=== PATIENT | male | born 1955 | race Caucasian/White ===

== ENCOUNTER 2019-09-02 14:25 | Outpatient (CLI) | payer MEDICARE, SELFPAY | END 2019-09-02 14:26 | disposition home or self-care (01) | LOC: SPT 14:26 | PROVIDERS: Family Provider Nurse Practitioner Primary Care; PCP Nurse Practitioner Primary Care; Visit Provider Podiatrist Foot & Ankle Surgery | DX: Z46.89 Encounter for fitting and adjustment of other specified devices (principal); L97.512 Non-pressure chronic ulcer of other part of right foot with fat layer exposed | CPT/HCPCS: L3030 ==

== ENCOUNTER 2020-06-22 13:07 | Outpatient (CLI) | payer MEDICARE, SELFPAY | END 2020-06-22 13:08 | disposition home or self-care (01) | LOC: WOUND 13:08 | PROVIDERS: Family Provider Nurse Practitioner Primary Care; PCP Nurse Practitioner Primary Care; Visit Provider Thoracic Surgery (Cardiothoracic Vascular Surgery) | DX: I96 Gangrene, not elsewhere classified (principal); L89.623 Pressure ulcer of left heel, stage 3 | CPT/HCPCS: 11042; 11045; G0463; L3260; L4397 ==

== ENCOUNTER 2020-07-20 14:09 | Outpatient (CLI) | payer MEDICARE, SELFPAY | END 2020-07-20 14:10 | disposition home or self-care (01) | LOC: WOUND 14:10 | PROVIDERS: Family Provider Nurse Practitioner Primary Care; PCP Nurse Practitioner Primary Care; Visit Provider Nurse Practitioner Family | DX: I96 Gangrene, not elsewhere classified (principal); L89.623 Pressure ulcer of left heel, stage 3 | CPT/HCPCS: 11042; L3260 ==

== ENCOUNTER 2020-07-27 13:35 | Outpatient (CLI) | payer MEDICARE, SELFPAY | END 2020-07-27 13:36 | disposition home or self-care (01) | LOC: WOUND 13:35 | PROVIDERS: Family Provider Nurse Practitioner Primary Care; PCP Nurse Practitioner Primary Care; Visit Provider Thoracic Surgery (Cardiothoracic Vascular Surgery) | DX: L89.623 Pressure ulcer of left heel, stage 3 (principal) | CPT/HCPCS: 11042 ==

== ENCOUNTER 2020-08-10 13:32 | Outpatient (CLI) | payer MEDICARE, SELFPAY | END 2020-08-10 13:33 | disposition home or self-care (01) | LOC: WOUND 13:33 | PROVIDERS: Family Provider Nurse Practitioner Primary Care; PCP Nurse Practitioner Primary Care; Visit Provider Nurse Practitioner Family | DX: L89.623 Pressure ulcer of left heel, stage 3 (principal) | CPT/HCPCS: 11042 ==

== ENCOUNTER 2020-08-24 13:46 | Outpatient (CLI) | payer MEDICARE, SELFPAY | END 2020-08-24 13:47 | disposition home or self-care (01) | LOC: WOUND 13:47 | PROVIDERS: Family Provider Nurse Practitioner Primary Care; PCP Nurse Practitioner Primary Care; Visit Provider Nurse Practitioner Family | DX: L89.623 Pressure ulcer of left heel, stage 3 (principal) | CPT/HCPCS: 11042 ==

== ENCOUNTER 2020-09-07 13:57 | Outpatient (CLI) | payer MEDICARE, SELFPAY | END 2020-09-07 13:58 | disposition home or self-care (01) | LOC: WOUND 13:58 | PROVIDERS: Family Provider Nurse Practitioner Primary Care; PCP Nurse Practitioner Primary Care; Visit Provider Nurse Practitioner Family | DX: L89.623 Pressure ulcer of left heel, stage 3 (principal) | CPT/HCPCS: 11042 ==

== ENCOUNTER 2020-09-21 13:58 | Outpatient (CLI) | payer MEDICARE, SELFPAY | END 2020-09-21 13:59 | disposition home or self-care (01) | LOC: WOUND 13:59 | PROVIDERS: Family Provider Nurse Practitioner Primary Care; PCP Nurse Practitioner Primary Care; Visit Provider Thoracic Surgery (Cardiothoracic Vascular Surgery) | DX: L89.623 Pressure ulcer of left heel, stage 3 (principal) | CPT/HCPCS: 11042 ==

== ENCOUNTER 2020-10-05 13:52 | Outpatient (CLI) | payer MEDICARE, SELFPAY | END 2020-10-05 13:53 | disposition home or self-care (01) | LOC: WOUND 13:53 | PROVIDERS: Family Provider Nurse Practitioner Primary Care; PCP Nurse Practitioner Primary Care; Visit Provider Thoracic Surgery (Cardiothoracic Vascular Surgery) | DX: L89.623 Pressure ulcer of left heel, stage 3 (principal) | CPT/HCPCS: 11042 ==

== ENCOUNTER 2020-10-13 14:50 | Outpatient (CLI) | payer MEDICARE, SELFPAY ==
--- NOTE | 2020-10-13 14:59 | US_ITS ---
WS: [id number] RENAL ULTRASOUND HISTORY: CKD STAGE 3 B COMPARISON: None available. TECHNIQUE: 2-D and color Doppler imaging of the kidney submitted. Right kidney: 10.8 cm x 7.3 cm x 4.7 cm. Normal echogenicity with no hydronephrosis or mass. Left kidney: 11.0 cm x 5.6 cm x 5.2 cm. Normal echogenicity with no hydronephrosis or mass. Aorta: Marked dilatation of the abdominal aorta. Only sagittal images of aorta are submitted and the AP diameter appears to be close to 4.9 cm. Large amount of thrombus is noted. Urinary Bladder: Normal distention. US/US renal BI* [id number] IMPRESSION: 1. Normal renal ultrasound. 2. Large abdominal aortic aneurysm with a maximum diameter 4.9 cm. Limited debbie luation during this renal ultrasound. Recommend dedicated CT angiogram of the a bdominal aorta or dedicated ultrasound of aorta. Notified Quincy Velez MD at 10/13/2020 3:37 PM. [employer] Supervisor called report a t time of examination.
== END 2020-10-13 14:51 | disposition home or self-care (01) ==
LOC: US 14:53
PROVIDERS: PCP Nurse Practitioner Primary Care; Visit Provider Internal Medicine Nephrology
DX: N18.32 Chronic kidney disease, stage 3b (principal); I71.4 Abdominal aortic aneurysm, without rupture
CPT/HCPCS: 76770

== ENCOUNTER 2020-10-14 13:23 | Outpatient (CLI) | payer MEDICARE, SELFPAY | END 2020-10-14 13:24 | disposition home or self-care (01) | LOC: WOUND 13:24 | PROVIDERS: PCP Nurse Practitioner Primary Care; Visit Provider Nurse Practitioner Family | DX: L89.623 Pressure ulcer of left heel, stage 3 (principal) | CPT/HCPCS: 11042 ==

== ENCOUNTER 2020-10-26 14:17 | Outpatient (CLI) | payer MEDICARE, SELFPAY | END 2020-10-26 14:18 | disposition home or self-care (01) | LOC: WOUND 14:18 | PROVIDERS: PCP Nurse Practitioner Primary Care; Visit Provider Thoracic Surgery (Cardiothoracic Vascular Surgery) | DX: Z09 Encounter for follow-up examination after completed treatment for conditions other than malignant neoplasm (principal) | CPT/HCPCS: 99212 ==

== ENCOUNTER 2020-11-02 13:54 | Outpatient (CLI) | payer MEDICARE, SELFPAY | END 2020-11-02 13:55 | disposition home or self-care (01) | LOC: WOUND 13:56 | PROVIDERS: PCP Nurse Practitioner Primary Care; Visit Provider Nurse Practitioner Family | DX: Z09 Encounter for follow-up examination after completed treatment for conditions other than malignant neoplasm (principal) | CPT/HCPCS: 99212 ==

== ENCOUNTER 2020-11-03 12:25 | Outpatient (CLI) | payer MEDICARE, SELFPAY ==
--- NOTE | 2020-11-03 12:45 | CT_ITS ---
WS: [id number] CT ANGIOGRAPHY ABDOMEN AORTA HISTORY: AORTIC ANEURYSM TECHNIQUE: CT angiogram is performed during IV injection. Reformation images reviewed. All CT scans a [facility] use at least one of these dose optimization techniques: automated exposure co ntrol; mA and/or kV adjustment per patient size (includes targeted exams where dose is matched to cli nical indication); or iterative reconstruction. CONTRAST: Omnipaque 350; 95 mL IV. DLP: 778.06 mGy-cm. COMPARISON: Renal ultrasound 10/13/2020 Lung bases are clear. Normal size heart. No hiatal hernia. Mild hepatomegaly and hepatic steatosis. C ontracted gallbladder. Normal size spleen and pancreas. Normal adrenal glands. No renal obstruction. No calcifications or solid masses. Abdominal aorta: Large abdominal aortic aneurysm extends over length of 12.2 cm. Aneurysm begins just below the level of the renal arteries and extends to the bifurcation. There is a large amount of anuja r circumferential thrombus. Diameter of the thrombus is 2.3 cm. The lumen is patent and is eccentrica lly positioned posteriorly. Aneurysm extends to the bifurcation. Maximum diameter of the aneurysm is 5.9 cm. Celiac axis and SMA are normal. Small amount calcium at the origins of the renal arteries. IM A is probably occluded. Proximal duodenum drapes over the aorta. Common iliac arteries are both paten t. No adenopathy or ascites. Prior appendectomy. 5 mm anterolisthesis of L4. Facet joint arthritis is moderate at L4-5 and L5-S1. CT/CT angio abdomen [id number] IMPRESSION: 1. Large juxtarenal abdominal aortic aneurysm extends over length of 12.2 cm. 2. Maximum aortic aneurysm diameter is 5.9 cm. 3. Asymmetric thrombus within the aneurysm. Diameter of the thrombosis 2.3 cm.
[2020-11-03 13:08] LABS: Blood Urea Nitrogen 13 mg/dL (8-23); Glomerular Filtration Rate 60.4 mL/min (90-130)
[2020-11-03] MEDS: iohexol 350 mg/mL 100 mL Btl IV (13:18)
== END 2020-11-03 12:26 | disposition home or self-care (01) ==
PROVIDERS: PCP Nurse Practitioner Primary Care; Visit Provider Nurse Practitioner Primary Care
DX: I71.4 Abdominal aortic aneurysm, without rupture (principal)
CPT/HCPCS: 74175; 82565; 84520; Q9967

== ENCOUNTER 2020-12-21 06:37 | Inpatient (IN) | payer MEDICARE, SELFPAY ==
[2020-12-16 09:50] VITALS: BMI 32.6
--- NOTE | 2020-12-16 10:11 | ECG_ITS ---
[facility] Test Date: 2020-12-16 Pat Name: Jeb Shook Department: Room: Gender: Male Planner/Scheduler: : 1955 Requested By: Gurwinder Wright Order Number: [id number] Lior MD: Debi Brown M.D. Measurements Intervals [place] Rate: 74 P: 32 WV: 200 QRS: 16 QRSD: 111 T: 6 QT: 370 QTc: 413 Interpretive Statements SINUS RHYTHM INFERIOR MYOCARDIAL INFARCTION [40+ ms Q WAVE AND/OR ST/T ABNORMALITY IN II/aVF], PROBABLY OLD Compared to ECG 08/30/2014 16:07:02 No significant changes Electronically Signed On 12-17-2020 14:44:21 CDT by Debi Brown M.D. [id number]
--- NOTE | 2020-12-16 10:17 | XR_ITS ---
WS: [id number] XR chest 2V* [id number] REASON FOR EXAM: pre op EVAR FINDINGS: Tortuosity and ectasia of the thoracic aorta without aneurysmal dilatation. The heart is at the upper limits of normal in size. Calcified granulomatous disease bilaterally. No active pulmonary parenchymal or pleural disease. Moderate degenerative spondylosis in the mid and lower thoracic spine. XR/XR chest 2V* [id number] IMPRESSION: No acute lung abnormality.
--- NOTE | 2020-12-16 10:17 | SUR.PREOP ---
cxr, ekg, covid done day of in person pre op on 12/16
[2020-12-16 11:00] LABS: Add Urine Microscopic? NO; Charge for UA Resulting for Rev
[2020-12-16 11:10] LABS: Basophils % 0.4 %; Eosinophils # 0.2 10^3/uL (0.0-0.8); Hematocrit 47.1 % (42.0-52.0); Lymphocytes # 2.3 10^3/uL (0.8-4.8); Lymphocytes % 31.7 %; Mean Corpuscular Hemoglobin 33.2 pg (28.0-34.0); Mean Corpuscular Volume 97.7 fL (80-94); Mean Platelet Volume 10.9 fL (7.4-10.4); Monocytes # 0.8 10^3/uL (0.2-0.9); Monocytes % 11.1 %; Neutrophils # 3.89 10^3/uL (1.8-7.7); Neutrophils % 53.4 %; Nucleated Red Blood Cells % 0 %; Platelet Count 261 10^3/cmm (130-400); Red Blood Count 4.82 10^6/uL (4.1-5.3); Red Cell Distribution Width 13.1 % (12.1-15.1); White Blood Count 7.3 10^3/uL (4.0-10.0)
[2020-12-16 11:11] LABS: Bilirubin Urine Neg (Negative); Blood Urine Neg (Negative); Glucose Urine UA Norm (Normal); Ketones Urine Negative (Negative); Leukocyte Esterase Urine Negative (Negative); Nitrate Urine Negative (Negative); Protein Urine Neg (Negative); Urine Appearance Clear (CLEAR); Urine Color Yellow (Yellow); Urobilinogen Urine Norm (Negative); pH Urine 5 (5-7)
[2020-12-16 11:17] LABS: INR 0.94 (0.8-1.2)
[2020-12-16 11:27] LABS: Anion Gap 14.5 (5-19); Blood Urea Nitrogen 13 mg/dL (8-23); Calcium 9.2 mg/dL (8.5-10.5); Carbon Dioxide 24 mmol/L (22-29); Chloride 102 mmol/L (98-107); Glomerular Filtration Rate 60.4 mL/min (90-130); Glucose 115 mg/dL (65-115); Osmolality Calculated 283 mOsm/kg (285-295); Potassium 4.5 mmol/L (3.5-5.1); Sodium 136 mmol/L (136-145)
--- NOTE | 2020-12-16 13:41 | ANES.PREANE2 ---
Pre-Anesthetic Assessment Pre-Anesthetic Assessment: Height/Weight: Height 1.83 m Weight 109.316 kg Preop Diagnosis: Abdominal aortic aneurysm Proposed Procedure: Operation Date: 12/21/20 07:00 Proposed Procedures p AAA Stent Cutdown Endovascular Aortic Repair(Not Applicable) - Gurwinder Wright MD Operation Date: 12/21/20 07:00 Proposed Procedures p Endovascular Aortic Repair(Not Applicable) - Gurwinder Wright MD Was Beta Tiffani taken within 24 hours: Yes Was Clonidine taken within 24 hours: N/A Social: Social History: Tobacco and No alcohol Exam: Pre-Anes Outpt Exam: alert, oriented x 3, clear to auscultation bilaterally and regular rate & rhythm Airway: Submandibular: WNL Cervical ROM: WNL MP: 2 Additional comments: Poor dentition Pulmonary: Pulmonary: COPD CV/HEM: CV/HEM: DVT, HTN, TX and PVD Comments: AAA : : Chronic renal Insufficiency GI: GI: GERD Metabolic: Metabolic: DM and Morbid obesity Musc/skel: Musc/skel: Lower Back Pain Anesthetic Plan: ASA status: 3 Anesthesia: General Other: A.line PFSH Anesthesia PFSH: Medical History Dilated aortic root History of deep vein thrombosis Hypertension Ischemic cardiomyopathy Myocardial infarction Tobacco abuse Surgical History History of appendectomy History of knee surgery Social History Smoking and tobacco status: current every day smoker cigarettes Packs smoked per day: 1 Years cigarettes smoked: 55 Alcohol intake: never Household members: spouse Marital status: Current occupational status: employed and retired Current occupation: [employer] Anesthesia CBC & Chem 7: 12/16/20 10:26 12/16/20 10:26 Other Labs: Laboratory Results - last 48 hr 12/16/20 12/16/20 12/16/20 10:26 10:26 10:26 WBC 7.3 RBC 4.82 Hgb 16.0 Hct 47.1 MCV 97.7 H MCH 33.2 MCHC 34.0 RDW 13.1 Plt Count 261 MPV 10.9 H Neut % (Auto) 53.4 Lymph % (Auto) 31.7 [place] % (Auto) 11.1 Eos % (Auto) 3.0 Baso % (Auto) 0.4 Neut # (Auto) 3.89 Lymph # (Auto) 2.3 [place] # (Auto) 0.8 Eos # (Auto) 0.2 Baso # (Auto) 0.0 Nucleated RBC % (auto) 0 Nucleated RBCs # 0.0 PT 12.90 INR 0.94 Sodium 136 Potassium 4.5 Chloride 102 Carbon Dioxide 24 Anion Gap 14.5 BUN 13 Creatinine 1.2 GFR Calculation 60.4 L Glucose 115 Calculated Osmolality 283 L Calcium 9.2 Urine Color Urine Appearance Urine pH Ur Specific [place] Urine Protein Urine Glucose (UA) Urine Ketones Urine Blood Urine Nitrate Urine Bilirubin Urine Urobilinogen Ur Leukocyte Esterase 12/16/20 10:26 WBC RBC Hgb Hct MCV MCH MCHC RDW Plt Count MPV Neut % (Auto) Lymph % (Auto) [place] % (Auto) Eos % (Auto) Baso % (Auto) Neut # (Auto) Lymph # (Auto) [place] # (Auto) Eos # (Auto) Baso # (Auto) Nucleated RBC % (auto) Nucleated RBCs # PT INR Sodium Potassium Chloride Carbon Dioxide Anion Gap BUN Creatinine GFR Calculation Glucose Calculated Osmolality Calcium Urine Color Yellow Urine Appearance Clear Urine pH 5 Ur Specific [place] 1.010 Urine Protein Neg Urine Glucose (UA) Norm Urine Ketones Negative Urine Blood Neg Urine Nitrate Negative Urine Bilirubin Neg Urine Urobilinogen Norm Ur Leukocyte Esterase Negative Cardiac Studies: No Data to Display
[2020-12-17 13:57] LABS: Coronavirus Test Green County Not Detected
[2020-12-21] VITALS (60 sets, daily range): BP systolic 107–135; BP diastolic 71–85; PULSE 0–88; RESP 9–19; TEMP 36.8–37.1; O2SAT 93–100; BMI 32.3
--- NOTE | 2020-12-21 06:44 | PM.HP ---
Providers/Chief Complaint Admitting Physician: Gurwinder Wright MD Primary Care Provider: Priyanka Oneil Chief Complaint: aaa History of Present Illness Jeb Shook is a 65 year old male who was cared for in our wound care service for a calcaneal wound which is now healed. Renal ultrasound was being performed for follow-up of renal insufficiency with an incidental finding of an infrarenal AAA with identified. This was followed up with a CTA which has confirmed a 4.9 cm juxtarenal abdominal aortic aneurysm. I saw him back and my heart care clinic on November 05. He has a familial history for AAA with a ruptured AAA in his grandfather. He is asymptomatic. He has a long history of tobacco use though is currently trying to quit for a second time. He has a easily palpable and nontender pulsatile abdominal mass consistent with his known AAA. He has no evidence for malperfusion distally. No claudication. No history for embolic phenomenon. His most recent BUN and creatinine were normal. Review of Systems Const: Denies: fever(s), chills, change in appetite, change in weight, fatigue or night sweats Eyes: Denies: change in vision or blurry vision ENMT: Denies: odynophagia or hoarseness Card: Reports: dyspnea on exertion; Denies: chest pain, palpitations, irregular heart rhythm, edema, syncope or leg pain with exertion Resp: Reports: dyspnea; Denies: productive cough or hemoptysis GI: Denies: abdominal pain, nausea, vomiting, dysphagia, heartburn or change in bowel habits : Denies: difficulty urinating, dysuria, urinary frequency, urinary urgency or urinary hesitancy Musc: Reports: joint pain and joint stiffness; Denies: extremity pain or extremity swelling Skin/Breast: Denies: rash Neuro: Denies: headache(s), numbness in extremities, weakness in extremities or sensory changes Psych: Denies: anxiety, depression or change in appetite Endo: Denies: polyuria, polydipsia or cold intolerance Manny/Lymph: Reports: easy bruising; Denies: easy bleeding, petechiae or enlarged lymph nodes Medications/Allergies Home Medications Medication Instructions Recorded Confirmed Last Taken Type Sole Supports #1 each 08/07/19 11/05/20 Unknown Rx cetirizine 5 mg tablet 5 mg PO DAILY 08/07/19 12/16/20 Unknown History metoprolol succinate 50 mg 50 mg PO DAILY 08/07/19 12/16/20 Unknown History tablet,extended release 24 hr sildenafil 25 mg tablet 25 mg PO DAILY PRN 08/07/19 12/16/20 Unknown History tramadol 200 mg tablet,extended 200 mg PO DAILY PRN 08/07/19 12/16/20 Unknown History release 24 hr gabapentin 100 mg capsule 100 mg PO QID cap 10/26/20 12/16/20 Unknown History omeprazole 40 mg capsule,delayed 40 mg PO DAILY PRN 10/26/20 12/16/20 Unknown History release zolpidem 12.5 mg tablet,extended 12.5 mg PO BEDTIME tab 10/26/20 12/16/20 Unknown History release,multiphase acetaminophen 650 mg 650 mg PO QID 11/05/20 12/16/20 Unknown History tablet,extended release Multivitamin 50 Plus 1 tab PO DAILY 12/16/20 12/16/20 Unknown History aspirin 325 mg PO DAILY 12/16/20 12/16/20 Unknown History Allergies Allergy/AdvReac Type Severity Reaction Status Date / Time cortisone Allergy Severe ended up Verified 12/16/20 09:41 in ICU, does not recall much Sulfa (Sulfonamide Allergy Unknown Unknown Verified 12/16/20 09:41 Antibiotics) PFSH Acute PFSH: Medical History Dilated aortic root History of deep vein thrombosis Hypertension Ischemic cardiomyopathy Myocardial infarction Tobacco abuse Surgical History History of appendectomy History of knee surgery Social History Smoking and tobacco status: current every day smoker cigarettes Packs smoked per day: 1 Years cigarettes smoked: 55 Alcohol intake: never Household members: spouse Marital status: Current occupational status: employed and retired Current occupation: [employer] Physical Exam Const: COMMON NORMALS: patient oriented x3 and alert ORIENTATION/CONSCIOUSNESS: Yes oriented to person, Yes oriented to place and Yes oriented to time HENMT: COMMON NORMALS: normocephalic HEAD & SCALP: normocephalic Neck/C-Spine: COMMON NORMALS: full ROM, supple, no JVD and No carotid bruits GENERAL: Yes trachea midline CERVICAL SPINE: Yes cervical ROM normal Chest: COMMONS NORMALS: normal inspection of the chest and normal palpation of entire chest wall Resp: COMMON NORMALS: normal respiratory effort, No use of accessory muscles, clear to auscultation bilaterally and percussion normal EFFORT & INSPECTION: Yes able to speak in complete sentences and Yes symmetric chest movement AUSCULTATION: clear to auscultation bilaterally PERCUSSION: percussion normal Cardio: COMMON NORMALS: no JVD, regular rate, regular rhythm, S1 normal heart sound present, S2 normal heart sound present, No gallops present (Cardio), No murmurs present (Cardio), No rub (Cardio) and Peripheral pulses 2+ throughout JUGULAR VENOUS DISTENTION: no JVD RATE: regular rate RHYTHM: regular rhythm HEART SOUNDS: S1 normal heart sound present and S2 normal heart sound present PERIPHERAL PULSES: radial pulses present positive bilateral 2+, femoral pulses present positive bilateral 2+, posterior tibial pulses present positive right 1+ and positive left 2+ and dorsalis pedis present positive right diminished and positive left 2+ Neuro: COMMON NORMALS: patient oriented x3, no focal motor deficits and no sensory deficits noted SENSORIUM/ORIENTATION: Yes alert, Yes oriented to person, Yes oriented to place and Yes oriented to time GAIT: Yes Normal gait present Data : 12/16/20 10:26 12/16/20 10:26 A&P Assessment and plan (1) AAA (abdominal aortic aneurysm): 65-year-old gentleman with a 5.9 cm juxtarenal AAA. Asymptomatic. Family history of a ruptured AAA in his grandfather. He is undergone careful preoperative evaluation and technical considerations for endovascular pair through our [facility] team. He appears to be an appropriate candidate for an AFX 2 bifurcated graft with proximal extension. He does have a rather small neck but substantial thrombus formation which should help with the seal. Rationale for this recommendation has been carefully discussed with Mr. Shook and his . Details and risks of the procedure were carefully and frankly discussed. Risks reviewed include the possibility of , stroke, heart attack, major bleeding, infection, pneumonia, organ failure, acute ischemia to major organs or lower extremities requiring attempt to revascularize, subsequent need for major amputation, failure to benefit, prolonged hospital stay, technical failure requiring need for laparotomy and attempted open repair, pain after the procedure, need for further procedures, inability to complete the procedure, and need for long-term followup. All questions were answered. Appropriate consents have been provided for review and signature. Status: Acute Attestations Medical Necessity Statement*: 5.9 cm AAA Time Spent in Patient Care: Greater than 35 minutes Coding Level of Care Code Acute Security Guard Supervisor for [facility] Fwd Diagnoses AAA (abdominal aortic aneurysm) I71.4
--- NOTE | 2020-12-21 06:49 | ANES.PAUD2 ---
Pre-Anesthetic Update Pre-Anesthetic Assessment: Date of Surgery/Procedure: 12/21/20 Preop Diagnosis: Abdominal aortic aneurysm Proposed Procedure: Operation Date: 12/21/20 07:00 Proposed Procedures p AAA Stent Cutdown Endovascular Aortic Repair (to be done in [employer])(Not Applicable) - Gurwinder Wright MD Operation Date: 12/21/20 07:00 Proposed Procedures p Endovascular Aortic Repair(Not Applicable) - Gurwinder Wright MD Any changes to Pre-Anesthetic Assessment?: No Labs Last 48hrs: Laboratory Results - last 48 hr 12/16/20 10:26 Blood Type A Positive Rho(D) Type Positive / 4+ Antibody Screen Negative Crossmatch See Detail Exam: Pre-Anes Outpt Exam: alert, oriented x 3, clear to auscultation bilaterally and regular rate & rhythm Cardiac Studies: No Data to Display
[2020-12-21] MEDS: lactated ringers 1,000 ML 100 ML IV (10:30)
--- NOTE | 2020-12-21 10:43 | P.OP_ITS ---
Operative Report Date of procedure: December 21, 2020 Pre-op Diagnosis: Abdominal aortic aneurysm Post-op diagnosis: same Procedure Done: Endovascular abdominal aortic aneurysm repair Implants: Endologix 28 x 100 bifurcated main body graft Endologix 34 x 100 suprarenal extension Pathology: none sent Surgeon: Gurwinder Wright Surgeon: Luna Aparicio Anesthesia: General Estimated blood loss (mL): 100 Complications: None Condition: stable Disposition: ICU Brief History: Mr. Shook is a 65-year-old gentleman who was found incidentally during renal ultrasound to have abdominal aortic aneurysm. He has a family history including ruptured aneurysm in his grandfather. Subsequent CTA revealed a 5.9 cm juxtarenal abdominal aortic aneurysm with termination prior to the iliac bifurcation. He has a long history of tobacco use. Given the size of the aneurysm, tobacco use, and family history, we recommended plans for attempted elective endovascular repair. Details the risk of the procedure were carefully and frankly discussed. Proper consents have been reviewed and signed. Procedure: Mr. Shook was taken to the catheterization lab, carefully positioned, and then underwent general endotracheal anesthesia. Appropriate invasive lines were placed including right radial arterial line and adequate vascular access. Keita catheter was placed. His lower chest and entire abdomen, groin region, and thighs were sterilely prepped and draped. A cutdown was performed in the right groin exposing the right common femoral artery. Next, via needle access and guidewire placement with fluoroscopy, a 6 Cymro sheath was placed in the left common femoral artery, and ProGlide Perclose securing sutures x 2 were engaged in the arterial wall and secured. The patient then received 10,000 units of heparin and ACT was confirmed to be therapeutic. The 6 Cymro sheath was then replaced with a 7 Cymro sheath over wire. A 9 Cymro sheath was then placed in the right femoral artery. Angiography was then performed to measure vessel length to characterize anatomy and topography. Predilatation was not required. A J-wire was utilized to be exchanged on the ipsilateral side to a Lunderquist stiff wire. Next, a loaded 28 x 100 AFX2 bifurcated device and delivery sheath were placed over the stiff wire and advanced along with the contralateral wire up through the 19 Cymro AFX introducer sheath utilizing wireguide. The contralateral wire was then snared and pulled out through the left common femoral artery. The AFX2 bifurcated device was transferred into the AFX introducer sheath and advanced under fluoroscopic guidance until distal limbs were above the aortic bifurcation thereby releasing the limbs of the graft. The entire system was pulled down to the aortic bifurcation. The main body of the bifurcated graft was then deployed by pulling on the controlled cord handle. Next, we deployed the contralateral limb by pulling the yellow limb cover, advancing a pigtail catheter over the contralateral wire into the tip was in contact with the wire lock, with wire lock being released by pulling it with a stationary pigtail catheter in position. The ipsilateral limb was then deployed by pinning the inner core and retracting the AFX introducer sheath. Next, we advanced and deployed a 34 x 100 supra extension endograft after angiography was performed to visualize the renal arteries. Iliac extensions were not required. Next, we removed the extension delivery device from the AFX introducer sheath. A CODA balloon was then utilized to clear the proximal extension distally just above the bifurcation to allow for complete wall contact. The entire endograft system proximally and distally was then ballooned in a similar fashion beginning at the level renal arteries extending distally. Final angiography was performed revealing patent renal arteries and juxta renal position of the proximal portion of the graft material. Next, catheters, sheaths, and guidewires were removed under fluoroscopic guidance. Perclose device was then utilized to close the left common femoral artery insertion site. This was noted to be hemostatic. The right common femoral artery was repaired directly utilizing interrupted 6-0 Prolene suture. There was good backbleeding and forward bleeding was prior to completion of the repair. Flow was then reestablished. 50 mg of protamine was given for heparin reversal. Right groin was noted to be hemostatic. It was irrigated with antibiotic solution. Sponge and needle count was correct. Wound was closed in 2 layers of 3-0 Vicryl suture. Skin was reapproximated in a subcuticular manner with 4-0 Monocryl suture. Sterile dressings were applied. He had palpable dorsalis pedis pulses bilaterally at completion of the procedure. He was awakened and extubated on the catheterization table. Mr. Shook was then transferred to the ICU in stable condition. I did prenatal genetic counselor with his at the completion of the procedure.
--- NOTE | 2020-12-21 15:46 | PM.MISC ---
Miscellaneous Note Purpose of Documentation: 6 hours postop and doing well. Minimal groin discomfort. Good distal perfusion. Keita catheter has been removed. Will allow him to be up in a chair for the evening meal. Groin dressings are clean and dry. I will resume his home meds. We will reassess in the morning for possible discharge. He may be transferred to the [facility] if ICU bed availability is required.
[2020-12-21] MEDS: gabapentin 100 mg Capsule PO ×2 (16:37→20:52)
--- NOTE | 2020-12-21 19:28 | ANE.PACU2 ---
Inpatient post-anesthesia follow up: Airway intact: Yes Vital signs: Temperature 98.4 F Pulse Rate 72 Respiratory Rate 16 Blood Pressure 126/78 Pulse Oximetry 95 Oxygen Delivery Me thod Simple Mask Oxygen Flow Rate Fraction of Inspir ed Oxygen Hydration adequate: Yes Nausea and vomiting: No Pain level: 2 Mental status: Baseline
[2020-12-21] MEDS: cetirizine 10 mg Tablet 5 MG PO (20:52)
[2020-12-22] VITALS (7 sets, daily range): BP systolic 106–118; BP diastolic 64–76; PULSE 81–93; RESP 14–18; TEMP 36.4–37.6; O2SAT 93–95
[2020-12-22] MEDS: lactated ringers 1,000 ML 100 ML IV (02:32)
[2020-12-22 03:09] LABS: Basophils % 0.2 %; Eosinophils # 0.1 10^3/uL (0.0-0.8); Eosinophils % 0.9 %; Hematocrit 41.6 % (42.0-52.0); Hemoglobin 13.3 g/dL (11.7-16.6); Lymphocytes # 2.2 10^3/uL (0.8-4.8); Mean Corpuscular Hemoglobin 32.4 pg (28.0-34.0); Mean Corpuscular Volume 101.5 fL (80-94); Mean Platelet Volume 10.2 fL (7.4-10.4); Monocytes % 8.5 %; Neutrophils # 8.38 10^3/uL (1.8-7.7); Neutrophils % 71.1 %; Nucleated Red Blood Cells % 0 %; Platelet Count 158 10^3/cmm (130-400); Red Cell Distribution Width 13.2 % (12.1-15.1); White Blood Count 11.8 10^3/uL (4.0-10.0)
[2020-12-22 03:32] LABS: Anion Gap 14.9 (5-19); Blood Urea Nitrogen 14 mg/dL (8-23); Carbon Dioxide 21 mmol/L (22-29); Chloride 103 mmol/L (98-107); Glomerular Filtration Rate 60.4 mL/min (90-130); Glucose 102 mg/dL (65-115); Osmolality Calculated 281 mOsm/kg (285-295); Potassium 3.9 mmol/L (3.5-5.1); Sodium 135 mmol/L (136-145)
[2020-12-22] MEDS: oxyCODONE-APAP 5-325 mg Tablet 1 TAB PO (04:49)
--- NOTE | 2020-12-22 06:03 | PC.NURSE ---
shift summary patient transferred form ICU. has had a good night, vital good. only needed one pain pill during this shift.
--- NOTE | 2020-12-22 06:26 | P.DS_ITS ---
Discharge Providers Date of Admission: 12/21/20 06:37 Date of Discharge: December 22, 2020 Attending Provider at Admission: Gurwinder Wright MD Attending Provider at Discharge: Gurwinder Wright MD Primary Care Provider: Priyanka Oneil Diagnoses at Discharge Discharge Diagnosis (1) AAA (abdominal aortic aneurysm): Status: Acute Reason for Visit Reason for Visit: aaa Hospital Course Hospital Course Mr. 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 He underwent careful outpatient evaluation in preparation for planned attempt at endovascular repair. He was electively admitted on December 21 underwent endovascular repair utilizing a 28 x 100 bifurcated main body graft at 34 x 100 suprarenal extension. Postoperatively, he convalesced in the ICU where he did well with stable vital signs and no evidence for malperfusion. Due to need for ICU bed availability, he was transferred to the [facility] last night and continued to do well through the evening. He has no complaints this morning. Postoperative discomfort is under good control. Surgical dressings have been replaced. There are no evidence for groin hematoma or fluid collection. Good perfusion distally. He will be discharged home today in stable condition. He will have limited lifting capacity and activity for the next 2 weeks. He will follow-up in my clinic in 1 week. Signs and symptoms of infection were carefully discussed with him. Physical Exam Resp: COMMON NORMALS: normal respiratory effort and clear to auscultation bilaterally AUSCULTATION: clear to auscultation bilaterally Cardio: COMMON NORMALS: regular rate, regular rhythm and S1 normal heart sound present RATE: regular rate RHYTHM: regular rhythm HEART SOUNDS: S1 nor mal heart sound present PERIPHERAL PULSES: femoral pulses present positive bilateral 2+, posterior tibial pulses present positive bilateral 1+ and dorsalis pedis present positive bilateral 1+ Extremity: COMMON NORMALS: capillary refill normal, no clubbing, cyanosis or edema and no calf tenderness Neuro: COMMON NORMALS: no focal motor deficits and no sensory deficits noted Discharge Data Data Completed and Pending: Completed Studies During Hospitalization Category Date Time Status XR chest 2V* 7104 6 Routine Exams 12/16/20 10:17 Completed Pending at discharge Category Date Time Status CERTIFIED HAND THERAPIST request for service Routin e Exams 12/21/20 07:09 Taken CTS [Type and Scr een - Cardiac] Rou maura Lab 12/16/20 10:26 Results Leukocyte Reduced RBC Routine Lab 12/16/20 10:26 Results Type and Screen R outine Lab 12/16/20 10:11 Uncollected Labs from last 24 hours 12/22/20 12/22/20 12/16/20 02:50 02:50 10:26 WBC 11.8 H RBC 4.10 Hgb 13.3 Hct 41.6 L MCV 101.5 H MCH 32.4 MCHC 32.0 RDW 13.2 Plt Count 158 MPV 10.2 Neut % (Auto) 71.1 Lymph % (Auto) 19.0 [place] % (Auto) 8.5 Eos % (Auto) 0.9 Baso % (Auto) 0.2 Neut # (Auto) 8.38 H Lymph # (Auto) 2.2 [place] # (Auto) 1.0 H Eos # (Auto) 0.1 Baso # (Auto) 0.0 Nucleated RBC % (a uto) 0 Nucleated RBCs # 0.0 Sodium 135 L Potassium 3.9 Chloride 103 Carbon Dioxide 21 L Anion Gap 14.9 BUN 14 Creatinine 1.2 GFR Calculation 60.4 L Glucose 102 Calculated Osmolal ity 281 L Calcium 8.0 L Blood Type A Positive Rho(D) Type Positive / 4+ Antibody Screen Negative Crossmatch See Detail Vitals: Last Vital Signs Temp 97.6 F 12/22/20 05:53 Pulse 93 12/22/20 05:53 Resp 17 12/22/20 05:53 BP 117/76 12/22/20 05:53 Pulse Ox 94 12/22/20 05:53 Discharge Plan Discharge Patient Disposition: Home Condition: Stable Prescriptions: New hydrocodone-acetaminophen 5-325 mg tablet 1 tab PO Q6H PRN (Reason: pain) Qty: 20 RF: 0 Continued cetirizine 5 mg tablet 5 mg PO BEDTIME RF: 0 tramadol 200 mg tablet extended release 24 hr 200 mg PO DAILY PRN (Reason: Pain) RF: 0 sildenafil 25 mg tablet 25 mg PO DAILY PRN (Reason: Erectile Dysfunction) RF: 0 (DME) Sole Supports Qty: 1 RF: 0 acetaminophen 650 mg tablet extended release 650 mg PO QID PRN (Reason: Pain) RF: 0 gabapentin 100 mg capsule 100 mg PO QID RF: 0 zolpidem 12.5 mg tablet,ext release multiphase 12.5 mg PO BEDTIME RF: 0 omeprazole 40 mg capsule,delayed release(DR/EC) 40 mg PO DAILY PRN (Reason: Acid Reflux) RF: 0 Multivitamin 50 Plus 1 tab PO DAILY RF: 0 aspirin 325 mg Tablet 325 mg PO DAILY RF: 0 metoprolol tartrate 50 mg tablet 50 mg PO DAILY RF: 0 Benadryl 25 mg Capsule 50 mg PO QAM RF: 0 Discharge Orders: Discharge Order (Routine); Ordered 12/22/20 Ordered By: Gurwinder Wright Referrals: Gurwindre Wright MD [Physician] - 1 week Discharge Diet: Usual diet Discharge Activity: Limit activity as instructed Patient Instructions: Abdominal Aortic Aneurysm (DC), Opioid Safety Activity Restrictions/Additional Instructions: May remove bandage tomorrow May begin daily showers in 2 days No swimming or tub baths x 2 weeks No ointments on incision Report drainage, redness, heat, increased pain, or swelling to clinic No heavy lifting or pulling x2 weeks Limit bending from waist as much as possible for the next 2 weeks May recover incision in right groin as needed to prevent irritation from clothing. Confirm right groin area is dry thoroughly after cleaning or showering. Discharge Attestations Time Spent in Discharge Care*: less than 30 min Specific Discharge Activities: educating patient, discussing with pcp/other providers, discussing with case advocate/social workers/dc planners, documenting/other paperwork and evaluating patient/reviewing data Time Spent in Smoking Cessation: 3 to 10 minutes Status at Discharge: Cognitive status at discharge: cognitively intact , Behavioral status at discharge: cooperative , Functional status at discharge: independent ambulation Overall status at discharge: patient is progressing back to baseline Quality Metrics Clinical Quality Measures During this hospital stay, did patient experience: None Coding Level of Care Code Acute Chg FW DC note Diagnoses AAA (abdominal aortic aneurysm) I71.4
[2020-12-22] MEDS: gabapentin 100 mg Capsule PO (08:24)
[2020-12-22] MEDS: pantoprazole DR 40 mg Tablet PO (08:24)
[2020-12-22] MEDS: metoprolol tartrate 50 mg Tablet PO (08:24)
--- NOTE | 2020-12-22 10:21 | PC.CHAP ---
Pastoral Care Encounter/Spiritual Assessment Type of Contact [] Declined flarer visit [] Patient/Family/Request visit [] Outpatient visit [] Follow-up visit [] Physician referral [] Code/Alert [x] Routine visit [] Staff referral [] Actively dying [] Patient sleeping [] Family support [] [] Out of room [] Palliative care [] [] Receiving care in room [] Pre-surgical visit [] Trauma [] Long length of stay [] ICU visit [] Other: Relational/Emotional Strength [x] Patient feels connected with others/family/visitors/staff [] Distress [] Loneliness/isolation [] Abandonment Spirituality of Patient [x] Person of Yael [x] Attends Sabianism of their Yael [x] Believes in Prayer [] Reads Bible or Synagogue materials [] There are Spiritual issues to be addressed Cardiac/Vascular Sonographer Interventions [] Prayer [x] Active listening []x Non-anxious presence [x] Spiritual/emotional support [] Crisis/trauma care [] Spiritual counseling [] Bereavement support [] Provided bereavement packet [] Provided Bible/devotional materials [] Provided toy/stuffed animal, coloring book to patient or family member [] Provided Communion [] Anointing/[place] [] Salvation [x] Completed spiritual assessment [] Other: Impact on Illness or Injury [] Angry [] Fearful [] Anxious [] Often cries [] Exhaustion [] Unable to work [] Unable to attend congregational [] Unable to walk/stand [] Unable to read [] Unable to drive [] Unable to eat/drink [] Unable to sleep [] Unable to be with family [] Patient intubated [] Other: Summary Time spent with patient 1o min
--- NOTE | 2020-12-22 10:22 | PC.NURSE ---
DISCHARGE INSTRUCTIONS DISCHARGE INSTRUCTIONS GIVEN TO PT AND - BOTH VERBALIZE UNDERSTANDING
== END 2020-12-22 11:44 | disposition home or self-care (01) | DRG 269 ==
LOC: ICU 06:39 → MEDSURG 22:39
PROVIDERS: Admitting Provider Thoracic Surgery (Cardiothoracic Vascular Surgery); PCP Nurse Practitioner Primary Care; Visit Provider Thoracic Surgery (Cardiothoracic Vascular Surgery)
PROC: 04V03ZZ Restriction of Abdominal Aorta, Percutaneous Approach (ICD-10-PCS; principal; 2020-12-21 07:00)
PROC: B4171ZZ Fluoroscopy of Left Renal Artery using Low Osmolar Contrast (ICD-10-PCS; principal; 2020-12-21 07:00)
DX: I71.4 Abdominal aortic aneurysm, without rupture (principal); F17.210 Nicotine dependence, cigarettes, uncomplicated; I10 Essential (primary) hypertension; I25.5 Ischemic cardiomyopathy; I25.2 Old myocardial infarction; Z79.82 Long term (current) use of aspirin; Z90.49 Acquired absence of other specified parts of digestive tract; Z98.890 Other specified postprocedural states; Z20.822 Contact with and (suspected) exposure to COVID-19; Z82.49 Family history of ischemic heart disease and other diseases of the circulatory system
CPT/HCPCS: 36415; 71046; 80048; 81003; 85025; 85610; 86850; 86900; 86920; 87635; 93005; C1725; C1760; C1769; C1773; C1887; C1894; J0690; J1644; J2370; J2405; J2704; J3010; J3490; J7030; J7050; Q9967

== ENCOUNTER 2021-04-06 14:26 | Outpatient (CLI) | payer MEDICARE, SELFPAY ==
--- NOTE | 2021-04-06 15:00 | CT_ITS ---
WS: [id number] CT ANGIOGRAPHY abdomen and pelvis, with and without contrast. HISTORY: I71.4 - Abdominal aortic aneurysm, without rupture TECHNIQUE: Noncontrast CT first performed. CT angiogram is performed during IV injection. Reformation images reviewed. All CT scans at [facility] use at least one of these dose optimization techn iques: automated exposure control; mA and/or kV adjustment per patient size (includes targeted exams where dose is matched to clinical indication); or iterative reconstruction. CONTRAST: Visipaque 320; 95 mL IV. DLP: 3060.94 mGycm COMPARISON: 11/03/2020 Emphysematous changes at the lung bases. Heart is slightly enlarged. Small hiatal hernia. Abdominal aorta: Since the prior examination endovascular aortobiiliac endovascular graft has been pl aced. The graft begins just below the level of the SMA throughout the aorta into the iliac arteries. Curvilinear area of high density along the anterolateral LEFT lateral graft is present on the noncont rast examination, probably calcification within the thrombus. No endovascular leak is identified. On the delayed imaging no enhancement within the thrombus or external to the graft. Aneurysm extends ove r a length of 11.3 cm with a maximum diameter of 5.7 cm. No increase in size of the aneurysm. No para -aortic hematoma. Kidneys remain normal size. No obstruction and no focal area of ischemia or infarct . Stable exophytic 12 mm cyst from the lower pole LEFT kidney. Marked fatty infiltration throughout the liver. Normal size spleen. Gallbladder is contracted. Normal pancreas. Normal adrenal glands. No ascites or adenopathy. No GI tract obstruction. There are a few scattered sigmoid diverticula. No diverticulitis. Prior appe ndectomy. Urinary bladder is well distended. Prostate gland is slightly enlarged and heterogeneous en croaching into the bladder. Seminal vesicles are prominent. Post procedure scarring at the RIGHT groi n. Component of central canal stenosis throughout the lumbar spine and foramina. Most significant at the L4-[address]/CT angio abdomen pelvis [id number] IMPRESSION: 1. Interval placement aortoiliac endovascular graft since 11/03/2020. 2. No increase in size of the tunica-biloxi aneurysm and no evidence for endovascular leak. No para-aortic hematoma. 3. Moderate hepatic steatosis. 4. Kidneys are enhancing normally with no infarct.
[2021-04-06 15:45] LABS: Blood Urea Nitrogen 14 mg/dL (8-23); Glomerular Filtration Rate 50.5 mL/min (90-130)
[2021-04-06] MEDS: iodixanol 320 mg/mL 100mL Btl IV (15:54)
== END 2021-04-06 14:27 | disposition home or self-care (01) ==
PROVIDERS: PCP Nurse Practitioner Primary Care; Visit Provider Thoracic Surgery (Cardiothoracic Vascular Surgery)
DX: I71.4 Abdominal aortic aneurysm, without rupture (principal); K76.0 Fatty (change of) liver, not elsewhere classified; Z95.818 Presence of other cardiac implants and grafts
CPT/HCPCS: 74174; 82565; 84520; Q9967